=== PATIENT | male | born 1980 | race Caucasian/White ===

== ENCOUNTER 2016-08-17 18:57 | Emergency (ER) | payer BC ==
[2016-08-17 20:07] VITALS: BP 156/106
[2016-08-17] MEDS ORDERED: DOXYcycline CAP(*) 100 MG PO ONE (20:41)
--- NOTE | 2016-08-17 20:41 | UC ---
Skin Complaint HPI - HPI Summary HPI Summary: tick attachment to chest wall may have been attached for >36 hours pt removed Tick earlier today - History of Current Complaint Chief Complaint: UCSkin Time Seen by Provider: 08/17/16 20:15 Stated Complaint: TICK BITE Hx Obtained From: Patient Onset/Duration: Sudden Onset, Lasting Days Skin Exposure Onset/Duration: Days Ago Timing: Constant Onset Severity: Mild Current Severity: Mild Location: Discrete Aggravating: Nothing Alleviating: Nothing Associated Signs & Symptoms: Positive: Negative Related History: Insect Bite/Sting - Allergy/Home Medications Allergies/Adverse Reactions: Allergies Allergy/AdvReac Type Severity Reaction Status Date / Time No Known Allergies Allergy Verified 08/17/16 20:06 Review of Systems Constitutional: Negative Skin: Other - tick attached to chest wall Eyes: Negative ENT: Negative Respiratory: Negative Cardiovascular: Negative Gastrointestinal: Negative Genitourinary: Negative Motor: Negative Neurovascular: Negative Musculoskeletal: Negative Neurological: Negative Psychological: Negative All Other Systems Reviewed And Are Negative: Yes PMH/Surg Hx/FS Hx/Imm Hx Previously Healthy: Yes Endocrine History Of: Denies: Diabetes, Thyroid Disease Cardiovascular History Of: Denies: Cardiac Disorders, Hypertension Respiratory History Of: Denies: COPD, Asthma GI/ History Of: Denies: Ulcer - Surgical History Surgical History: None Surgery Procedure, Year, and Place: denies - Family History Known Family History: Positive: None - Social History Occupation: Employed Full-time Lives: With Family Alcohol Use: Occasionally Substance Use Type: None Smoking Status (MU): Former Smoker Length of Time of Smoking/Using Tobacco: 2 years - Immunization History Most Recent Influenza Vaccination: denies Most Recent Tetanus Shot: utd Physical Exam Triage Information Reviewed: Yes Appearance: Well-Appearing, No Pain Distress, Well-Nourished Vital Signs: Initial Vital Signs Temp 98.3 F 08/17/16 20:01 Pulse 84 08/17/16 20:01 Resp 16 08/17/16 20:01 BP 156/106 08/17/16 20:01 Pulse Ox 100 08/17/16 20:01 Vital Signs Reviewed: Yes Eye Exam: Normal Eyes: Positive: Conjunctiva Clear ENT Exam: Normal ENT: Positive: Normal ENT inspection, Hearing grossly normal. Negative: Nasal congestion, Nasal drainage, Trismus, Muffled/hoarse voice Dental Exam: Normal Neck exam: Normal Neck: Positive: Supple, Nontender, No Lymphadenopathy Respiratory Exam: Normal Respiratory: Positive: Chest non-tender, Lungs clear, Normal breath sounds, No respiratory distress, No accessory muscle use Cardiovascular Exam: Normal Cardiovascular: Positive: RRR, No Murmur, Pulses Normal, Brisk Capillary Refill Musculoskeletal Exam: Normal Musculoskeletal: Positive: Strength Intact Neurological Exam: Normal Neurological: Positive: Alert, Muscle Tone Normal Psychological Exam: Normal Skin Exam: Other Skin: Positive: Other - tick to chest wall-removed [employer]CTOR [employer]RY Course/Dx - Course Course Of Treatment: Doxy x 1 dose 200mg... wash with soap and water, follow with pcp prn,education regarding Lyme Disease, and DASH diet plan for HTN provided - Differential Diagnoses - Skin Complaint Differential Diagnoses: Cellulitis, Contact Dermatitis, Tick Born Illness - Diagnoses Provider Diagnoses: Tick Exposure, Lyme PEP, High Blood pressure with out dx of HTN Discharge - Discharge Plan Condition: Stable Disposition: HOME Patient Education Materials: Tick Bite (ED), DASH Eating Plan (ED), Hypertension (ED) Referrals: Tanner Emerson MD [Primary Care Provider] - 2 Weeks
== END 2016-08-17 21:00 | disposition home or self-care (01) ==
LOC: UCEAST 18:57
DX: S20.369A Insect bite (nonvenomous) of unspecified front wall of thorax, initial encounter (principal); W57.XXXA Bitten or stung by nonvenomous insect and other nonvenomous arthropods, initial encounter; Y93.9 Activity, unspecified; Y92.9 Unspecified place or not applicable; R03.0 Elevated blood-pressure reading, without diagnosis of hypertension; Z87.891 Personal history of nicotine dependence
CPT/HCPCS: 99212; A9270-GY; G0463

== ENCOUNTER 2016-10-13 22:01 | Emergency (ER) | payer BC ==
[2016-10-13] MEDS ORDERED: NS 0.9% 1000 ML* 1,000 ML IV ONE (22:38)
[2016-10-14 00:36] LABS: BUN/Creatinine Ratio 9.6 (8-20); C Reactive Protein 1.97 mg/L (< 5.00); Calcium 9.8 mg/dL (8.6-10.3); EGFR Non-African American 72.3 (>60); Globulin 3.2 g/dL (2-4); Potassium 3.5 mmol/L (3.5-5.0); Total Bilirubin 0.9 mg/dL (0.2-1.0); Total Protein 8.2 g/dL (6.4-8.9)
[2016-10-14 00:58] LABS: Hematocrit 47 % (42-52); Hemoglobin 15.9 g/dl (14.0-18.0); Mean Corpuscular HGB Conc 34 g/dl (31-36); Mean Corpuscular Hemoglobin 31 pg (27-31); Mean Corpuscular Volume 92 fL (80-94); Mean Platelet Volume 9 um3 (7.4-10.4); Red Blood Count 5.12 10^6/ul (4.0-5.4); Red Cell Distribution Width 12 % (10.5-15); White Blood Count 15.8 10^3/ul (3.5-10.8)
[2016-10-14 01:02] VITALS: BP 152/101
[2016-10-14] MEDS ORDERED: DOXYcycline CAP(*) 100 MG PO ONE (01:11)
--- NOTE | 2016-10-14 01:17 | ED ---
Skin Complaint - HPI Summary HPI Summary: Pt here w/ Rt calf skin rash - started yesterday - worse today (spreading/ expanding). No witnessed bug bite but he does go into wooded areas. Denies fever chills, n/v/d. Imms are UTD. - History of Current Complaint Chief Complaint: EDRashSkinAbscess Time Seen by Provider: 10/14/16 00:21 Stated Complaint: BUG BITE/RED STREAK Hx Obtained From: Patient Pain Intensity: 2 - Allergy/Home Medications Allergies/Adverse Reactions: Allergies Allergy/AdvReac Type Severity Reaction Status Date / Time No Known Allergies Allergy Verified 10/14/16 09:30 PMH/Surg Hx/FS Hx/Imm Hx Previously Healthy: Yes Endocrine/Hematology History: Denies: Hx Anticoagulant Therapy, Hx Blood Disorders, Hx Diabetes, Hx Thyroid Disease, Autoimmune Disease Cardiovascular History: Denies: Hx Hypertension Respiratory History: Denies: Hx Asthma, Hx Chronic Obstructive Pulmonary Disease (COPD) GI History: Denies: Hx Ulcer - Surgical History Surgery Procedure, Year, and Place: denies Infectious Disease History: No Infectious Disease History: Denies: Hx Clostridium Difficile, Hx Hepatitis, Hx Human Immunodeficiency Virus (HIV), Hx of Known/Suspected MRSA, Hx Shingles, Hx Tuberculosis, Hx Known/ Suspected VRE, Hx Known/Suspected VRSA, History Other Infectious Disease, Traveled Outside the [place] in Last 30 Days - Family History Known Family History: Positive: None - Social History Occupation: Employed Full-time Lives: With Family Alcohol Use: Occasionally Hx Substance Use: No Substance Use Type: Reports: None Hx Tobacco Use: Yes Smoking Status (MU): Former Smoker Length of Time of Smoking/Using Tobacco: 2 years Review of Systems Constitutional: Negative Negative: Fever, Chills, Fatigue Cardiovascular: Negative Negative: Chest Pain Respiratory: Negative Negative: Shortness Of Breath Gastrointestinal: Negative Positive: no symptoms reported Musculoskeletal: Negative Positive: Rash - see HPI Neurological: Negative Psychological: Normal All Other Systems Reviewed And Are Negative: Yes Physical Exam - Summary Physical Exam Summary: EM rash w. central vesciles - indurated, warm adn TTP - no FB observed Triage Information Reviewed: Yes Vital Signs On Initial Exam: Initial Vitals Temp Pulse Resp BP Pulse Ox 98.8 F 134 16 187/105 100 10/13/16 22:04 10/13/16 22:04 10/13/16 22:04 10/13/16 22:04 10/13/16 22:04 Vital Signs Reviewed: Yes Appearance: Positive: Well-Appearing, No Pain Distress, Well-Nourished Skin: Positive: Warm, Dry - area of well defined erythema over Rt calf w/ aircraft mechanic armament erythema at peripheral edges - vesicles within central wound - no fluctuance - mild streaking up across medial knee Head/Face: Positive: Normal Head/Face Inspection Eyes: Positive: EOMI ENT: Positive: Hearing grossly normal Respiratory/Lung Sounds: Positive: Breath Sounds Present Cardiovascular: Positive: Normal, RRR, Pulses are Symmetrical in both Upper and Lower Extremities. Negative: Leg Edema Left, Leg Edema Right - (-) Mario's sign Musculoskeletal: Positive: Normal, Strength/ROM Intact Neurological: Positive: Normal, Sensory/Motor Intact, Alert, Oriented to Person Place, Time, CN Intact II-III Psychiatric: Positive: Normal Diagnostics - Vital Signs Vital Signs Temp Pulse Resp BP Pulse Ox 10/14/16 01:02 99.1 F 87 12 152/101 99 10/13/16 22:04 98.8 F 134 16 187/105 100 - Laboratory Lab Results: Lab Results 10/13/16 10/13/16 10/13/16 Range/Units 23:55 23:55 23:55 WBC 15.8 H (3.5-10.8) 10^3/ul RBC 5.12 (4.0-5.4) 10^6/ul Hgb 15.9 (14.0-18.0) g/dl Hct 47 (42-52) % MCV 92 (80-94) fL MCH 31 (27-31) pg MCHC 34 (31-36) g/dl RDW 12 (10.5-15) % Plt Count 219 (150-450) 10^3/ul MPV 9 (7.4-10.4) um3 Neut % (Auto) 87.4 H (38-83) % Lymph % (Auto) 4.9 L (25-47) % [place] % (Auto) 6.8 (1-9) % Eos % (Auto) 0.6 (0-6) % Baso % (Auto) 0.3 (0-2) % Absolute Neuts (auto) 13.8 H (1.5-7.7) 10^3/ul Absolute Lymphs (auto) 0.8 L (1.0-4.8) 10^3/ul Absolute Monos (auto) 1.1 H (0-0.8) 10^3/ul Absolute Eos (auto) 0.1 (0-0.6) 10^3/ul Absolute Basos (auto) 0 (0-0.2) 10^3/ul Absolute Nucleated RBC 0.03 10^3/ul Nucleated RBC % 0.2 INR (Anticoag Therapy) 0.98 (0.89-1.11) APTT 30.6 (26.0-36.3) seconds D-Dimer, Quantitative < 200 (Less Than 230) ng/mL Sodium 136 (133-145) mmol/L Potassium 3.5 (3.5-5.0) mmol/L Chloride 102 (101-111) mmol/L Carbon Dioxide 27 (22-32) mmol/L Anion Gap 7 (2-11) mmol/L BUN 11 (6-24) mg/dL Creatinine 1.14 (0.67-1.17) mg/dL Est GFR ( Amer) 93.0 (>60) Est GFR (Non-Af Amer) 72.3 (>60) BUN/Creatinine Ratio 9.6 (8-20) Glucose 100 (70-100) mg/dL Lactic Acid (0.5-2.0) mmol/L Calcium 9.8 (8.6-10.3) mg/dL Total Bilirubin 0.90 (0.2-1.0) mg/dL AST 23 (13-39) U/L ALT 35 (7-52) U/L Alkaline Phosphatase 74 (34-104) U/L C-Reactive Protein 1.97 (< 5.00) mg/L Total Protein 8.2 (6.4-8.9) g/dL Albumin 5.0 (3.2-5.2) g/dL Globulin 3.2 (2-4) g/dL Albumin/Globulin Ratio 1.6 (1-3) 10/13/16 Range/Units 23:55 WBC (3.5-10.8) 10^3/ul RBC (4.0-5.4) 10^6/ul Hgb (14.0-18.0) g/dl Hct (42-52) % MCV (80-94) fL MCH (27-31) pg MCHC (31-36) g/dl RDW (10.5-15) % Plt Count (150-450) 10^3/ul MPV (7.4-10.4) um3 Neut % (Auto) (38-83) % Lymph % (Auto) (25-47) % [place] % (Auto) (1-9) % Eos % (Auto) (0-6) % Baso % (Auto) (0-2) % Absolute Neuts (auto) (1.5-7.7) 10^3/ul Absolute Lymphs (auto) (1.0-4.8) 10^3/ul Absolute Monos (auto) (0-0.8) 10^3/ul Absolute Eos (auto) (0-0.6) 10^3/ul Absolute Basos (auto) (0-0.2) 10^3/ul Absolute Nucleated RBC 10^3/ul Nucleated RBC % INR (Anticoag Therapy) (0.89-1.11) APTT (26.0-36.3) seconds D-Dimer, Quantitative (Less Than 230) ng/mL Sodium (133-145) mmol/L Potassium (3.5-5.0) mmol/L Chloride (101-111) mmol/L Carbon Dioxide (22-32) mmol/L Anion Gap (2-11) mmol/L BUN (6-24) mg/dL Creatinine (0.67-1.17) mg/dL Est GFR ( Amer) (>60) Est GFR (Non-Af Amer) (>60) BUN/Creatinine Ratio (8-20) Glucose (70-100) mg/dL Lactic Acid 1.8 (0.5-2.0) mmol/L Calcium (8.6-10.3) mg/dL Total Bilirubin (0.2-1.0) mg/dL AST (13-39) U/L ALT (7-52) U/L Alkaline Phosphatase (34-104) U/L C-Reactive Protein (< 5.00) mg/L Total Protein (6.4-8.9) g/dL Albumin (3.2-5.2) g/dL Globulin (2-4) g/dL Albumin/Globulin Ratio (1-3) Result Diagrams: 07/01/17 23:55 10/13/16 23:55 Lab Statement: Any lab studies that have been ordered have been reviewed, and results considered in the medical decision making process. Course/Dx - Course Course Of Treatment: Pt here w/ acute rash. Appears to be EM but no definitive bug bite so can't say Lyme for sure. Give h/o will start tx as such. WBC's elevated however CRP and lactic acid WNL and vitals unremarkable for advanced infection so will start on PO doxy and encourage f/u w/ Dr. Powell, infectious disease. - Diagnoses Provider Diagnoses: Erythema migrans (Lyme disease) Discharge - Discharge Plan Condition: Stable Disposition: HOME Prescriptions: DOXYcycline CAP(*) [DOXYcycline 100MG CAP(*)] 100 mg PO BID #42 cap Patient Education Materials: Lyme Disease (ED) Referrals: Stormy LOVELL,Getachew Steel [Medical Doctor] - Additional Instructions: You appear to have an erythema migrans rash which may indicate Lyme disease. This may also be an early abscess/cellulitis. The medication prescribed will address both Lyme disease as well as abscess/cellulitis. Please follow-up with infectious disease provider for further assessment and care in the event this is Lyme disease. *If you develop fever > 103F despite trying acetaminophen and ibuprofen or you have headache, vomiting, diarrhea, spread of red/infected area, return to ED
== END 2016-10-14 01:43 | disposition home or self-care (01) ==
LOC: ED 22:01
DX: A69.20 Lyme disease, unspecified (principal); Z87.891 Personal history of nicotine dependence
CPT/HCPCS: 36415; 80053; 83605; 85025; 85379; 85610; 85730; 86140; 86618; 99282; A9270-GY

== ENCOUNTER 2016-10-14 09:10 | Emergency (ER) | payer BC ==
[2016-10-14 09:30] VITALS: BP 137/92
--- NOTE | 2016-10-14 09:34 | UC ---
Bite Injury/Animal HPI - HPI Summary HPI Summary: 35 YEAR OLD MALE PRESENTS WITH COMPLAINS OF WORSENING BUG BITE ON RIGHT THIGH. PATIENT WAS SEEN IN THE ER LAST NIGHT. - History of Current Complaint Chief Complaint: Joanne Stated Complaint: BUG BITE Time Seen by Provider: 10/14/16 09:32 - Allergies/Home Medications Allergies/Adverse Reactions: Allergies Allergy/AdvReac Type Severity Reaction Status Date / Time No Known Allergies Allergy Verified 10/14/16 09:30 PMH/Surg Hx/FS Hx/Imm Hx - Surgical History Surgical History: None Surgery Procedure, Year, and Place: denies - Family History Known Family History: Positive: None - Social History Alcohol Use: Occasionally Substance Use Type: None Smoking Status (MU): Former Smoker Length of Time of Smoking/Using Tobacco: 2 years - Immunization History Most Recent Influenza Vaccination: denies Most Recent Tetanus Shot: utd Review of Systems Constitutional: Negative Skin: Bruising, Other - BUG BITE RIGHT THIGH Eyes: Negative ENT: Negative Respiratory: Negative Cardiovascular: Negative Gastrointestinal: Negative Genitourinary: Negative Motor: Negative Neurovascular: Negative Musculoskeletal: Negative Neurological: Negative Psychological: Negative All Other Systems Reviewed And Are Negative: Yes Physical Exam Triage Information Reviewed: Yes Vital Signs: Initial Vital Signs Temp 37.7 C 10/14/16 09:26 Pulse 85 10/14/16 09:26 Resp 16 10/14/16 09:26 BP 137/92 10/14/16 09:26 Pulse Ox 100 10/14/16 09:26 Eye Exam: Normal ENT Exam: Normal Dental Exam: Normal Neck exam: Normal Neck: Positive: 1 Respiratory Exam: Normal Cardiovascular Exam: Normal Abdominal Exam: Normal Musculoskeletal Exam: Normal Neurological Exam: Normal Psychological Exam: Normal Skin Exam: Normal Skin: Positive: Other - RIGHT THIGH BUG BITE Bite Injury Course/Dx - Differential Dx/Diagnosis Provider Diagnoses: BUG BITE RIGHT THIGH Discharge - Discharge Plan Condition: Guarded Disposition: AGAINST MEDICAL ADVICE Patient Education Materials: Tick Bite (ED) Referrals: No Primary Care Phys,NOPCP [Primary Care Provider] - If Needed
== END 2016-10-14 10:03 | disposition left against medical advice (07) ==
LOC: UCEAST 09:10
DX: S70.361A Insect bite (nonvenomous), right thigh, initial encounter (principal); W57.XXXA Bitten or stung by nonvenomous insect and other nonvenomous arthropods, initial encounter; Y93.9 Activity, unspecified; Y92.9 Unspecified place or not applicable; Y99.9 Unspecified external cause status; Z87.891 Personal history of nicotine dependence
CPT/HCPCS: 99212; G0463

== ENCOUNTER 2016-10-14 10:18 | Emergency (ER) | payer BC ==
[2016-10-14 12:27] LABS: Hematocrit 48 % (42-52); Hemoglobin 15.9 g/dl (14.0-18.0); Mean Corpuscular HGB Conc 34 g/dl (31-36); Mean Corpuscular Hemoglobin 31 pg (27-31); Mean Corpuscular Volume 92 fL (80-94); Mean Platelet Volume 8 um3 (7.4-10.4); Red Blood Count 5.17 10^6/ul (4.0-5.4); Red Cell Distribution Width 12 % (10.5-15); White Blood Count 13.8 10^3/ul (3.5-10.8)
[2016-10-14 12:38] LABS: Albumin 4.9 g/dL (3.2-5.2); BUN/Creatinine Ratio 10.4 (8-20); Calcium 9.9 mg/dL (8.6-10.3); EGFR African American 101.1 (>60); EGFR Non-African American 78.6 (>60); Globulin 3.2 g/dL (2-4); Potassium 3.7 mmol/L (3.5-5.0); Total Bilirubin 2.1 mg/dL (0.2-1.0); Total Protein 8.1 g/dL (6.4-8.9)
[2016-10-14] MEDS ORDERED: DOXYcycline CAP(*) 100 MG PO ONE (13:11)
--- NOTE | 2016-10-14 13:11 | ED ---
Skin Complaint - HPI Summary HPI Summary: 35M presents with rash for 2 days. Was seen last night and prescribe doxcycline. He has taken one dose. He states that the PA last night told him if the area spreads to return. He was seen at urgent care and transferred here for blood work. He denies any fever. He denies any fatigue. He states he had a bug bite of the area previously. - History of Current Complaint Chief Complaint: EDRashSkinAbscess Time Seen by Provider: 10/14/16 11:23 Stated Complaint: BUG BITE/SENT FROM [facility] Pain Intensity: 2 - Allergy/Home Medications Allergies/Adverse Reactions: Allergies Allergy/AdvReac Type Severity Reaction Status Date / Time No Known Allergies Allergy Verified 10/14/16 09:30 PMH/Surg Hx/FS Hx/Imm Hx Endocrine/Hematology History: Denies: Hx Diabetes, Hx Thyroid Disease Cardiovascular History: Denies: Hx Hypertension Respiratory History: Denies: Hx Asthma, Hx Chronic Obstructive Pulmonary Disease (COPD) GI History: Denies: Hx Ulcer - Surgical History Surgery Procedure, Year, and Place: denies Infectious Disease History: No Infectious Disease History: Denies: Hx Clostridium Difficile, Hx Hepatitis, Hx Human Immunodeficiency Virus (HIV), Hx of Known/Suspected MRSA, Hx Shingles, Hx Tuberculosis, Hx Known/ Suspected VRE, Hx Known/Suspected VRSA, History Other Infectious Disease, Traveled Outside the in Last 30 Days - Family History Known Family History: Positive: None - Social History Alcohol Use: Occasionally Substance Use Type: Reports: None Smoking Status (MU): Former Smoker Length of Time of Smoking/Using Tobacco: 2 years Review of Systems Negative: Fever Negative: Chest Pain Negative: Shortness Of Breath Positive: Rash All Other Systems Reviewed And Are Negative: Yes Physical Exam Triage Information Reviewed: Yes Vital Signs On Initial Exam: Initial Vitals Temp Pulse Resp BP Pulse Ox 98.8 F 74 16 159/109 95 10/14/16 10:19 10/14/16 10:19 10/14/16 10:19 10/14/16 10:19 10/14/16 10:19 Vital Signs Reviewed: Yes Appearance: Positive: Well-Appearing Skin: Positive: Other - 6cm by 8cm area of erythema that is not warm to touch with surround streaking and area of raised redish-purple color in center, streaking has gone 4cm passed line drawn last night. Head/Face: Positive: Normal Head/Face Inspection Eyes: Positive: Normal, Conjunctiva Clear ENT: Positive: Normal ENT inspection, Pharynx normal, TMs normal Respiratory/Lung Sounds: Positive: Clear to Auscultation, Breath Sounds Present Cardiovascular: Positive: Normal, RRR Diagnostics - Vital Signs Vital Signs Temp Pulse Resp BP Pulse Ox 10/14/16 10:19 98.8 F 74 16 159/109 95 - Laboratory Lab Results: Lab Results 10/14/16 10/14/16 10/14/16 Range/Units 12:05 12:05 12:05 WBC 13.8 H (3.5-10.8) 10^3/ul RBC 5.17 (4.0-5.4) 10^6/ul Hgb 15.9 (14.0-18.0) g/dl Hct 48 (42-52) % MCV 92 (80-94) fL MCH 31 (27-31) pg MCHC 34 (31-36) g/dl RDW 12 (10.5-15) % Plt Count 185 (150-450) 10^3/ul MPV 8 (7.4-10.4) um3 Neut % (Auto) 88.6 H (38-83) % Lymph % (Auto) 4.2 L (25-47) % [place] % (Auto) 6.8 (1-9) % Eos % (Auto) 0.2 (0-6) % Baso % (Auto) 0.2 (0-2) % Absolute Neuts (auto) 12.2 H (1.5-7.7) 10^3/ul Absolute Lymphs (auto) 0.6 L (1.0-4.8) 10^3/ul Absolute Monos (auto) 0.9 H (0-0.8) 10^3/ul Absolute Eos (auto) 0 (0-0.6) 10^3/ul Absolute Basos (auto) 0 (0-0.2) 10^3/ul Absolute Nucleated RBC 0.01 10^3/ul Nucleated RBC % 0.1 Sodium 135 (133-145) mmol/L Potassium 3.7 (3.5-5.0) mmol/L Chloride 102 (101-111) mmol/L Carbon Dioxide 24 (22-32) mmol/L Anion Gap 9 (2-11) mmol/L BUN 11 (6-24) mg/dL Creatinine 1.06 (0.67-1.17) mg/dL Est GFR ( Amer) 101.1 (>60) Est GFR (Non-Af Amer) 78.6 (>60) BUN/Creatinine Ratio 10.4 (8-20) Glucose 122 H (70-100) mg/dL Lactic Acid 1.5 (0.5-2.0) mmol/L Calcium 9.9 (8.6-10.3) mg/dL Total Bilirubin 2.10 H (0.2-1.0) mg/dL AST 23 (13-39) U/L ALT 36 (7-52) U/L Alkaline Phosphatase 76 (34-104) U/L C-React Prot High Sens 21.34 mg/L Total Protein 8.1 (6.4-8.9) g/dL Albumin 4.9 (3.2-5.2) g/dL Globulin 3.2 (2-4) g/dL Albumin/Globulin Ratio 1.5 (1-3) Result Diagrams: 10/14/16 12:05 10/14/16 12:05 Lab Statement: Any lab studies that have been ordered have been reviewed, and results considered in the medical decision making process. Course/Dx - Course Course Of Treatment: 35M presents with rash for 2 days. Was seen last night and prescribe doxcycline. He has taken one dose. He states that the PA last night told him if the area spreads to return. He was seen at urgent care and transferred here for blood work. He denies any fever. He denies any fatigue. He states he had a bug bite of the area previously. labs wbc 15 yesterday and today is 13 so is improving. lactic normal. discussed that only one dose is not necessarily antibiotic failure and that need to wait two days and then if continues to spread will consider admission. believe doxcycline is the appropiate anitbiotic for possible lyme as appears more lyme like rather than cellulitic. patient understands and agrees with plan - Differential Diagnoses - Skin Complaint Differential Diagnoses: Abscess, Cellulitis, Tick Born Illness - Diagnoses Provider Diagnoses: Lyme disease Discharge - Discharge Plan Condition: Good Disposition: HOME Patient Education Materials: Lyme Disease (ED) Referrals: [facility] [Outside] Additional Instructions: Take Tylenol or ibuprofen for pain every 6 hours Continue taking doxycycline wear sunscreen and take with food Establish care with primary care physician After two days if rash progresses return or if develop fever can not control with ibuprofen, or any new or wrosneing symptoms
[2016-10-14 13:40] VITALS: BP 131/91
== END 2016-10-14 13:41 | disposition home or self-care (01) ==
LOC: ED 10:18
DX: A69.20 Lyme disease, unspecified (principal); Z87.891 Personal history of nicotine dependence
CPT/HCPCS: 36415; 80053; 83605; 85025; 86141; 99282; A9270-GY